=== PATIENT | male | born 1970 | race Caucasian/White ===

== ENCOUNTER 2020-05-09 22:33 | Emergency (ER) | payer OTHER ==
[~2020-05-09] VITALS: Ht 180.3 cm; Wt 113.4 kg
[2020-05-09 22:50] VITALS: BP_SYST 158
--- NOTE | 2020-05-10 00:10 | NUR ---
Patient did not want to wait. Patient left without being seen. No further treatment provided. ER MD aware
== END 2020-05-10 00:10 | disposition left against medical advice (07) ==
LOC: SED 22:33
DX: L50.9 Urticaria, unspecified (principal); Z53.21 Procedure and treatment not carried out due to patient leaving prior to being seen by health care provider